=== PATIENT | female | born 2005 | race Two or more races ===

== ENCOUNTER 2024-06-24 19:46 | Emergency (ER) | payer BC, SELFPAY ==
[2024-06-24 19:53] VITALS: BP 137/89; PULSE 60; TEMP 37.5; O2SAT 100; BMI 23.9
[2024-06-24 20:05] VITALS: O2SAT 100
--- NOTE | 2024-06-24 20:07 | ED_ITS ---
HPI HPI - General Adult General Chief complaint: Arrhythmia/Palpitations Stated complaint: palpitation Time Seen by Provider: 06/24/24 19:55 Source: patient Mode of arrival: walk-in History of Present Illness HPI narrative: 18-year-old female presents to the emergency department because she is worried she might be anemic. She has a history of heavy bleeding from menstrual periods and is on her menstrual period now. She felt a little bit dizzy and felt like her heart was skipping a beat. She has never had to have a blood transfusion. Symptoms appear to have started today. Related Data Allergies Allergy/AdvReac Type Severity Reaction Status Date / Time No Known Drug Allergies Allergy Verified 06/24/24 20:00 Opioid HPI Opioid Management Most Recent Opioid Data: No Data to Display Review of Systems ROS Narrative A ten point review of systems is negative except as noted above. PFSH PFSH Social History Little interest or pleasure in doing things: not at all Feeling down, depressed, or hopeless: not at all Exam Narrative Exam Narrative: Nurses note and vital signs reviewed and patient is not hypoxic. General: The patient appears well and in no apparent distress. Patient is resting comfortably on cart. Skin: Warm, dry, no pallor noted. There is no rash noted. Head: Normocephalic, atraumatic Eye: Normal conjunctiva, no drainage Ears, Nose, Mouth, and Throat: oral mucosa is moist. Nares patent. Cardiovascular: Regular Rate and Rhythm Respiratory: Patient is in no distress, no accessory muscle use, lungs are clear to auscultation, no wheezing, rales or rhonchi Back: non-tender GI: Soft and nontender, nondistended Musculoskeletal: The patient has no evidence of calf tenderness, no pitting edema, symmetrical pulses noted bilaterally Neurological: A&O, normal speech Psychiatric: Cooperative Constitutional Vital Signs, click to edit/add: Last Vital Signs Temp 99.5 F 06/24/24 19:53 Pulse 60 06/24/24 19:53 Resp 16 06/24/24 19:53 BP 137/89 06/24/24 19:53 Pulse Ox 100 06/24/24 20:05 O2 Del Method Room Air 06/24/24 20:05 Course Vital Signs Vital signs: Vital Signs Temperature 99.5 F 06/24/24 19:53 Pulse Rate 60 06/24/24 19:53 Respiratory Rate 16 06/24/24 19:53 Blood Pressure 137/89 06/24/24 19:53 Pulse Oximetry 100 06/24/24 19:53 Oxygen Delivery Method Room Air 06/24/24 19:53 Temperature 99.5 F 06/24/24 19:53 Pulse Rate 60 06/24/24 19:53 Respiratory Rate 16 06/24/24 19:53 Blood Pressure 137/89 06/24/24 19:53 Pulse Oximetry 100 06/24/24 20:05 Oxygen Delivery Method Room Air 06/24/24 20:05 Medical Decision Making MDM Narrative Medical decision making narrative: Her workup is negative. She is not and her hemoglobin is 11.8. She has had no dysrhythmias here and she is able to be discharged home. Treatment diagnosis and follow-up were discussed with the patient. Lab Data Lab results reviewed: Yes I reviewed the patient's lab results Labs: Lab Results 06/24/24 Range/Units 20:15 WBC 4.6 (4.0-11.0) 10^3/uL RBC 3.70 L (4.20-5.40) 10^6/uL Hgb 11.8 L (12.0-16.0) g/dL Hct 35.0 L (36.0-48.0) % MCV 94.6 (81.0-99.0) fL MCH 31.9 (26.7-34.0) pg MCHC 33.7 (29.9-35.2) g/dL RDW 13.2 (11.0-15.0) % Plt Count 188 (150-450) 10^3/uL MPV 11.4 (9.5-13.5) fL Neut % (Auto) 56.9 (43.0-75.0) % Lymph % (Auto) 31.8 (20.5-60.0) % [place] % (Auto) 7.0 (1.7-12.0) % Eos % (Auto) 3.7 (0.9-7.0) % Baso % (Auto) 0.4 (0.2-2.0) % Neut # (Auto) 2.6 (1.4-6.5) 10^3/uL Lymph # (Auto) 1.5 (1.2-3.8) 10^3/uL [place] # (Auto) 0.3 (0.3-0.8) 10^3/uL Eos # (Auto) 0.2 (0.0-0.7) 10^3/uL Baso # (Auto) 0.0 (0.0-0.1) 10^3/uL Abs Immat Gran (auto) 0.01 (0.00-0.03) 10^3/uL Imm/Tot Granulo (auto) 0.2 (0.0-0.5) % Sodium 141 (136-145) mmol/L Potassium 3.6 (3.5-5.1) mmol/L Chloride 106 (98-107) mmol/L Carbon Dioxide 27.6 (21.0-32.0) mmol/L Anion Gap 11.0 BUN 5.0 L (7.0-18.0) mg/dL Creatinine 0.68 (0.55-1.02) mg/dL Est GFR ( Amer) >60 (>=60 mL/min/1.73m^2) Est GFR (Non-Af Amer) >60 (>=60 mL/min/1.73m^2) BUN/Creatinine Ratio 7.4 Glucose 94 (74-106) mg/dL Calcium 8.6 (8.5-10.1) mg/dL Serum HCG, Qual Negative (NEGATIVE) ECG Data Attestation: I personally reviewed and interpreted this ECG as follows: (EKG on my interpretation shows sinus rhythm with rate of 57.) Discharge Plan Discharge Chief Complaint: Arrhythmia/Palpitations Clinical Impression: Palpitations Patient Disposition: Home, Self-Care Mode of Transportation: Private Vehicle Print Language: Malagasy Instructions: Heart Palpitations (ED) Referrals: Physician,Non-Staff, MD [Primary Care Provider] - 1 week
[2024-06-24 20:34] LABS: Basophils Percent Auto 0.4 % (0.2-2.0); Eosinophils Absolute Auto 0.2 10^3/uL (0.0-0.7); Eosinophils Percent Auto 3.7 % (0.9-7.0); Hemoglobin 11.8 g/dL (12.0-16.0); Immature Granulocytes Abs Auto 0.01 10^3/uL (0.00-0.03); Immature Granulocytes Pct Auto 0.2 % (0.0-0.5); Lymphocytes Absolute Auto 1.5 10^3/uL (1.2-3.8); Lymphocytes Percent Auto 31.8 % (20.5-60.0); Mean Corpuscular HGB Conc 33.7 g/dL (29.9-35.2); Mean Corpuscular Hemoglobin 31.9 pg (26.7-34.0); Mean Corpuscular Volume 94.6 fL (81.0-99.0); Mean Platelet Volume 11.4 fL (9.5-13.5); Monocytes Absolute Auto 0.3 10^3/uL (0.3-0.8); Neutrophils Absolute Auto 2.6 10^3/uL (1.4-6.5); Neutrophils Percent Auto 56.9 % (43.0-75.0); Platelet Count 188 10^3/uL (150-450); Red Cell Distribution Width 13.2 % (11.0-15.0); White Blood Count 4.6 10^3/uL (4.0-11.0)
[2024-06-24 20:45] LABS: BUN Creatinine Ratio 7.4; Calcium 8.6 mg/dL (8.5-10.1); Carbon Dioxide 27.6 mmol/L (21.0-32.0); Chloride 106 mmol/L (98-107); Estimated GFR (African America >60 (>=60 mL/min/1.73m^2); Estimated GFR (Non-African Ame >60 (>=60 mL/min/1.73m^2); Glucose 94 mg/dL (74-106); HCG Qualitative NEGATIVE (NEGATIVE); Internal Control Within Normal Limits; Potassium 3.6 mmol/L (3.5-5.1); Sodium 141 mmol/L (136-145)
[2024-06-24 21:17] VITALS: BP 112/82; PULSE 67; O2SAT 99
--- NOTE | 2024-06-24 21:48 | ECG_ITS ---
[facility] Test Date: 2024-06-24 Pat Name: TIFFANY ANG Department: Room: - Gender: Female Counter Helper: : 2005 Requested By: [id number] Order Number: [id number] Reading MD: SUKH DE PAZ Measurements Intervals [place] Rate: 57 P: 19 NE: 152 QRS: -30 QRSD: 86 T: 13 QT: 442 QTc: 437 Interpretive Statements 1100 Sinus rhythm 7202 Moderate left axis deviation 9110 normal ECG No previous ECG available for comparison Electronically Signed On 06-25-2024 7:45:56 EST by SUKH DE PAZ
== END 2024-06-24 21:17 | disposition home or self-care (01) ==
PROVIDERS: Emergency Provider Emergency Medicine
DX: R00.2 Palpitations (principal); R42 Dizziness and giddiness
CPT/HCPCS: 36415; 80048; 84703; 85025; 93005; 99284